=== PATIENT | female | born 1985 | race American Indian/Alaskan Native ===

== ENCOUNTER → 2023-11-05 | Outpatient (CLI) | payer MEDICAID ==
[~2023-11-05] MED LIST: BUPIVACAINE HCL 0.25% P/F 10 ML VIAL ONE; LIDOCAINE 2% (LOCAL ANESTH.) PF 5ml SDV ONE; methylPREDNISolone ACETATE 80 MG/ML VL ONE
== END | disposition home or self-care (01) ==
LOC: XYW 13:05
PROVIDERS: ATTEND Orthopaedic Surgery Adult Reconstructive Orthopaedic Surgery
DX: S63.591A Other specified sprain of right wrist, initial encounter (principal); X58.XXXA Exposure to other specified factors, initial encounter; Y93.89 Activity, other specified; Y92.89 Other specified places as the place of occurrence of the external cause; Y99.8 Other external cause status
CPT/HCPCS: 20606; J1010; J2001; J3490; 76881; 76942

== ENCOUNTER 2024-09-30 19:16 | Emergency (ER) | payer MEDICAID, OTHER ==
[~2024-09-30] VITALS: Ht 152.4 cm; Wt 63.6 kg
[2024-09-30] MEDS ORDERED: IBUPROFEN 800 MG TAB PO ONE (19:45)
[2024-09-30] MEDS ORDERED: TETANUS-DIPTH-ACEL PERTUSSIS 0.5ML SYR Tdap IM ONE (19:45)
[2024-09-30] MEDS ORDERED: cefTRIAXone SOD 1,000 MG VL IM ONE (19:45)
[2024-09-30] MEDS ORDERED: CYCL-837 PO (20:05)
[2024-09-30] MEDS ORDERED: ACET500T58 PO (20:05)
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
--- NOTE | 2024-09-30 20:30 | DVH ---
EXAM: CT CERVICAL WITHOUT CONTRAST INDICATION: neck pain EXAM DATE: 09/30/2024 08:00 PM COMPARISON: None TECHNIQUE: Multiple axial CT images of the cervical spine were obtained using bone algorithm. Axial a nd coronal reformatting was done. Bone and soft tissue windows were reviewed. Radiation Dose Information: CT Dose: CTDI volume is 23 mGy. Dose-length product is 583 mGy*cm FINDINGS: The cervical alignment is intact. No acute cervical spine fracture is identified. The vertebral body heights are intact. No suspicious osseous lesions are identified. No significant degenerative changes are identified. There is no prevertebral soft tissue swelling. IMPRESSION: 1. No evidence of acute cervical spine fracture or traumatic malalignment. All CT scans at this medical facility are performed using dose modulation techniques as appropriate t o a performed exam including the following: Automated exposure control was utilized; adjustment of th e MA and/or KV according to patient size; and use of iterative reconstruction technique.
--- NOTE | 2024-09-30 20:34 | DVH ---
EXAMINATIONS: 2 views of the thoracic spine 3 views of the lumbar spine CLINICAL HISTORY: back pain COMPARISON: None Findings and impression: No grossly displaced fractures or subluxations of the thoracic or lumbar spine are evident on the pro vided views. Visualized vertebral body heights appear maintained. Alignment appears preserved. The sacroiliac joints appear symmetric. If there is persistent clinical concern, follow-up MRI may be obtained to further evaluate.
[2024-09-30] MEDS: HYDROcodone-ACET 5/325MG TAB PO ONE (20:44)
[2024-09-30] MEDS: ONDANSETRON ODT 4 MG TAB PO ONE (20:44)
[2024-09-30 21:14] VITALS: BP 101/68; PULSE 76; RESP 18; TEMP 98.6; O2SAT 99
== END 2024-09-30 21:19 | disposition home or self-care (01) ==
LOC: ER 19:16
DX: S16.1XXA Strain of muscle, fascia and tendon at neck level, initial encounter (principal); S39.012A Strain of muscle, fascia and tendon of lower back, initial encounter; S29.012A Strain of muscle and tendon of back wall of thorax, initial encounter; E03.9 Hypothyroidism, unspecified; Z79.899 Other long term (current) drug therapy; V89.2XXA Person injured in unspecified motor-vehicle accident, traffic, initial encounter; Y93.I9 Activity, other involving external motion; Y92.488 Other paved roadways as the place of occurrence of the external cause; Y99.8 Other external cause status
CPT/HCPCS: 72070; 72100; 72125; 99284; Q0162